=== PATIENT | female | born 1975 | race African-American/Black ===

== ENCOUNTER 2024-01-26 10:47 | Emergency (ER) | payer MEDICAID ==
[~2024-01-26] VITALS: Ht 165.1 cm; Wt 77.2 kg
[2024-01-26 10:52] VITALS: BP 169/119; PULSE 118; RESP 18; TEMP 98.1; O2SAT 98
[2024-01-26] MEDS ORDERED: NAPR-746 PO (12:45)
[2024-01-26] MEDS ORDERED: BACDST PO (12:45)
== END 2024-01-26 13:04 | disposition home or self-care (01) ==
LOC: ER 10:47
DX: L02.213 Cutaneous abscess of chest wall (principal); I10 Essential (primary) hypertension; Z98.890 Other specified postprocedural states; Z79.899 Other long term (current) drug therapy